=== PATIENT | male | born 1995 | race American Indian/Alaskan Native ===

== ENCOUNTER 2016-08-14 11:35 | Emergency (ER) | payer SELFPAY ==
[2016-08-14] MEDS ORDERED: NACL 0.9% 1000 ML 1,000 ML IV ONE ×2 (11:41→13:21)
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
[2016-08-14 12:34] LABS: Basophils % (Auto) 0.3 % (0.0-1.8); Eosinophils % (Auto) 1.4 % (0.0-4.3); Hematocrit 40.3 % (35.5-45.6); Hemoglobin 13.4 gm/dl (11.8-15.2); Mean Corpuscular HGB Conc 33 % (32-34); Mean Corpuscular Hemoglobin 29 pg (28-32); Mean Corpuscular Volume 88 fl (84-94); Platelet Count 328 K/mm3 (140-440); Red Blood Count 4.56 M/mm3 (3.65-5.03); Red Cell Distribution Width 13.6 % (13.2-15.2); White Blood Count 7.3 K/mm3 (4.5-11.0)
[2016-08-14 12:56] LABS: Alanine Aminotransferase 38 units/L (7-56); Albumin 4.4 g/dL (3.9-5); Albumin/Globulin Ratio 1.4 %; Alkaline Phosphatase 98 units/L (35-129); Anion Gap 17 mmol/L; Bilirubin,Total 0.2 mg/dL (0.1-1.2); Blood Urea Nitrogen 8 mg/dL (9-20); Calcium 9.1 mg/dL (8.4-10.2); Carbon Dioxide 25 mmol/L (22-30); Chloride 101.3 mmol/L (98-107); Glucose 110 mg/dL (75-100); Potassium 3.4 mmol/L (3.6-5.0); Sodium 140 mmol/L (137-145); Total Protein 7.5 g/dL (6.3-8.2)
[2016-08-14 12:57] LABS: Creatine Kinase 231 units/L (55-170)
--- NOTE | 2016-08-14 23:59 | Admit Criteria Form ---
Admission Criteria Documentation: DRUG INGESTION OR OVERDOSE Clinical Indications for Admission to Inpatient Care ( Place 'X' for any and all applicable criteria): Admission is indicated for severe toxicity as indicated by ANY ONE of the following(1)(2)(3)(4)(5)(6): [ X]I. Inpatient admission required rather than observation care (Also use Drug Ingestion or Overdose: Observation Care guideline as appropriate) because of ANY ONE of the following: [ ]a) Altered mental status that is severe or persistent [ ]b) Clinical finding (eg, metabolic acidosis, hypoglycemia, bradycardia) that is severe or persistent [ ]c) Toxic drug level that is persistent [ ]d) Psychiatric risk status not acceptable for outpatient management [ ]e) Continuous intravenous infusion of anticoagulation, platelet inhibitor, vasoactive, or antiarrhythmic medication (15)(16) [X ]f) Other condition, treatment or monitoring requiring inpatient admission [ ]II. Respiratory abnormalities [ ]III. Specific finding indicating severe and likely prolonged drug toxicity [ ]IV. Hemodynamic instability [ ]V. Dangerous arrhythmia [ ]. Hypertension requiring inpatient treatment Extended stay beyond goal length of stay may be needed for (4): [ ]a) Neurologic or respiratory compromise [ ]b) Hemodynamic instability [ ]c) Persistent toxic drug levels (25) [ ]d) Severe drug toxicities or complications [ ]e) Ongoing antidote treatment (eg, acetaminophen overdose)(5) [ ]f) Older patients(65 years or older) The original [employer] content created by [employer] has been revised. The portions of the content which have been revised are identified through the use of italic text or in bold, and [email or web address] has neither reviewed nor approved the modified material. All other unmodified content is copyright [facility] [employer]. Please see references footnoted in the original [employer] [facility] [employer] English edition 2016 Admission Criteria Met: Yes
[2016-08-15] MEDS ORDERED: LaMICtal PO SCH ×8 (12:00→22:00)
--- NOTE | 2016-08-15 13:10 | Event Note ---
Date: 08/15/16 I am asked by the nurse to evaluate the patient for possible convulsions/seizure -like activity. I have evaluated the patient in the past. 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 He has not taken his Lamictal since being here. His medications have been reconciled by me. Laboratory studies are reviewed and appreciated. Lactic acid 2.5 nonspecific, typically clinically did not get concerned with a lactic acid of less than 4.0. May be related to prolonged tourniquet time. No fever, no cough, no urinary symptoms, highly doubt serious bacterial infection at this time. We will reinitiate his Lamictal. Vital signs are reviewed. Patient is still awaiting psychiatric placement. Walks with a steady gait, has a GCS of 15, NIH score of 0. Vital Signs 08/14/16 08/14/16 08/14/16 11:49 11:50 11:54 Temperature Pulse Rate 126 H 127 H Respiratory 17 16 18 Rate Blood Pressure Blood Pressure [Left] O2 Sat by Pulse 100 100 100 Oximetry 08/14/16 08/14/16 08/14/16 12:00 12:15 12:30 Temperature Pulse Rate 144 H 120 H 108 H Respiratory 22 17 15 Rate Blood Pressure 153/88 159/73 149/71 Blood Pressure [Left] O2 Sat by Pulse 99 100 99 Oximetry 08/14/16 08/14/16 08/14/16 12:32 12:45 13:00 Temperature Pulse Rate 106 H 104 H 108 H Respiratory 16 14 22 Rate Blood Pressure 149/71 150/78 168/103 Blood Pressure [Left] O2 Sat by Pulse 99 99 99 Oximetry 08/14/16 08/14/16 08/14/16 13:16 13:30 13:40 Temperature Pulse Rate 98 H 102 H 92 H Respiratory 17 19 16 Rate Blood Pressure 128/68 120/48 120/48 Blood Pressure [Left] O2 Sat by Pulse 99 100 97 Oximetry 08/14/16 08/14/16 08/14/16 13:46 14:00 14:16 Temperature Pulse Rate 92 H 90 88 Respiratory 16 14 13 Rate Blood Pressure 120/43 111/42 134/42 Blood Pressure [Left] O2 Sat by Pulse 97 98 98 Oximetry 08/14/16 08/14/16 08/14/16 14:30 14:36 14:46 Temperature Pulse Rate 99 H 92 H 97 H Respiratory 21 17 19 Rate Blood Pressure 156/71 156/71 120/62 Blood Pressure [Left] O2 Sat by Pulse 98 99 100 Oximetry 08/14/16 08/14/16 08/14/16 15:00 15:15 15:30 Temperature Pulse Rate 90 86 96 H Respiratory 14 13 17 Rate Blood Pressure 102/51 91/45 152/83 Blood Pressure [Left] O2 Sat by Pulse 97 96 99 Oximetry 08/14/16 08/14/16 08/14/16 15:45 16:00 16:16 Temperature Pulse Rate 94 H 88 99 H Respiratory 18 14 18 Rate Blood Pressure 140/77 132/70 153/87 Blood Pressure [Left] O2 Sat by Pulse 99 99 98 Oximetry 08/14/16 08/14/16 08/14/16 16:30 16:45 17:00 Temperature Pulse Rate 92 H 90 84 Respiratory 16 14 14 Rate Blood Pressure 148/77 150/60 133/58 Blood Pressure [Left] O2 Sat by Pulse 98 97 98 Oximetry 08/14/16 08/14/16 08/14/16 17:15 17:30 17:45 Temperature Pulse Rate 95 H 104 H 102 H Respiratory 14 16 21 Rate Blood Pressure 134/66 142/70 144/118 Blood Pressure [Left] O2 Sat by Pulse 99 99 99 Oximetry 08/14/16 08/14/16 08/14/16 18:00 18:16 19:00 Temperature 97.0 F L Pulse Rate 115 H 115 H 94 H Respiratory 22 15 20 Rate Blood Pressure 144/118 175/106 Blood Pressure 145/82 [Left] O2 Sat by Pulse 98 97 97 Oximetry 08/15/16 08/15/16 08:52 12:39 Temperature 98.2 F Pulse Rate 97 H 101 H Respiratory 16 14 Rate Blood Pressure Blood Pressure 138/88 133/81 [Left] O2 Sat by Pulse 97 99 Oximetry Lab Results 08/14/16 08/14/16 08/14/16 Range/Units 11:41 11:41 11:42 WBC 7.3 (4.5-11.0) K/mm3 RBC 4.56 (3.65-5.03) M/mm3 Hgb 13.4 (11.8-15.2) gm/dl Hct 40.3 (35.5-45.6) % MCV 88 (84-94) fl MCH 29 (28-32) pg MCHC 33 (32-34) % RDW 13.6 (13.2-15.2) % Plt Count 328 (140-440) K/mm3 Lymph % (Auto) 17.7 (13.4-35.0) % [place] % (Auto) 7.0 (0.0-7.3) % Eos % (Auto) 1.4 (0.0-4.3) % Baso % (Auto) 0.3 (0.0-1.8) % Lymph # 1.3 (1.2-5.4) K/mm3 [place] # 0.5 (0.0-0.8) K/mm3 Eos # 0.1 (0.0-0.4) K/mm3 Baso # 0.0 (0.0-0.1) K/mm3 Seg Neutrophils % 73.6 H (40.0-70.0) % Seg Neutrophils # 5.4 (1.8-7.7) K/mm3 Sodium 140 (137-145) mmol/L Potassium 3.4 L (3.6-5.0) mmol/L Chloride 101.3 (98-107) mmol/L Carbon Dioxide 25 (22-30) mmol/L Anion Gap 17 mmol/L BUN 8 L (9-20) mg/dL Creatinine 1.0 (0.8-1.5) mg/dL Estimated GFR > 60 ml/min BUN/Creatinine Ratio 8.00 % Glucose 110 H (75-100) mg/dL Lactic Acid (0.7-2.0) mmol/L Calcium 9.1 (8.4-10.2) mg/dL Total Bilirubin 0.2 (0.1-1.2) mg/dL AST 20 (5-40) units/L ALT 38 (7-56) units/L Alkaline Phosphatase 98 (35-129) units/L Total Creatine Kinase 231 H (55-170) units/L Troponin T < 0.010 (0.00-0.029) ng/mL Total Protein 7.5 (6.3-8.2) g/dL Albumin 4.4 (3.9-5) g/dL Albumin/Globulin Ratio 1.4 % Salicylates (2.8-20.0) mg/dL Acetaminophen (10.0-30.0) ug/mL Plasma/Serum Alcohol (0-0.07) gm% 08/14/16 08/14/16 08/14/16 Range/Units 11:42 11:42 11:42 WBC (4.5-11.0) K/mm3 RBC (3.65-5.03) M/mm3 Hgb (11.8-15.2) gm/dl Hct (35.5-45.6) % MCV (84-94) fl MCH (28-32) pg MCHC (32-34) % RDW (13.2-15.2) % Plt Count (140-440) K/mm3 Lymph % (Auto) (13.4-35.0) % [place] % (Auto) (0.0-7.3) % Eos % (Auto) (0.0-4.3) % Baso % (Auto) (0.0-1.8) % Lymph # (1.2-5.4) K/mm3 [place] # (0.0-0.8) K/mm3 Eos # (0.0-0.4) K/mm3 Baso # (0.0-0.1) K/mm3 Seg Neutrophils % (40.0-70.0) % Seg Neutrophils # (1.8-7.7) K/mm3 Sodium (137-145) mmol/L Potassium (3.6-5.0) mmol/L Chloride (98-107) mmol/L Carbon Dioxide (22-30) mmol/L Anion Gap mmol/L BUN (9-20) mg/dL Creatinine (0.8-1.5) mg/dL Estimated GFR ml/min BUN/Creatinine Ratio % Glucose (75-100) mg/dL Lactic Acid (0.7-2.0) mmol/L Calcium (8.4-10.2) mg/dL Total Bilirubin (0.1-1.2) mg/dL AST (5-40) units/L ALT (7-56) units/L Alkaline Phosphatase (35-129) units/L Total Creatine Kinase (55-170) units/L Troponin T (0.00-0.029) ng/mL Total Protein (6.3-8.2) g/dL Albumin (3.9-5) g/dL Albumin/Globulin Ratio % Salicylates < 0.3 L (2.8-20.0) mg/dL Acetaminophen < 15.0 (10.0-30.0) ug/mL Plasma/Serum Alcohol < 0.01 (0-0.07) gm% 08/14/16 Range/Units 11:50 WBC (4.5-11.0) K/mm3 RBC (3.65-5.03) M/mm3 Hgb (11.8-15.2) gm/dl Hct (35.5-45.6) % MCV (84-94) fl MCH (28-32) pg MCHC (32-34) % RDW (13.2-15.2) % Plt Count (140-440) K/mm3 Lymph % (Auto) (13.4-35.0) % [place] % (Auto) (0.0-7.3) % Eos % (Auto) (0.0-4.3) % Baso % (Auto) (0.0-1.8) % Lymph # (1.2-5.4) K/mm3 [place] # (0.0-0.8) K/mm3 Eos # (0.0-0.4) K/mm3 Baso # (0.0-0.1) K/mm3 Seg Neutrophils % (40.0-70.0) % Seg Neutrophils # (1.8-7.7) K/mm3 Sodium (137-145) mmol/L Potassium (3.6-5.0) mmol/L Chloride (98-107) mmol/L Carbon Dioxide (22-30) mmol/L Anion Gap mmol/L BUN (9-20) mg/dL Creatinine (0.8-1.5) mg/dL Estimated GFR ml/min BUN/Creatinine Ratio % Glucose (75-100) mg/dL Lactic Acid 2.5 H* (0.7-2.0) mmol/L Calcium (8.4-10.2) mg/dL Total Bilirubin (0.1-1.2) mg/dL AST (5-40) units/L ALT (7-56) units/L Alkaline Phosphatase (35-129) units/L Total Creatine Kinase (55-170) units/L Troponin T (0.00-0.029) ng/mL Total Protein (6.3-8.2) g/dL Albumin (3.9-5) g/dL Albumin/Globulin Ratio % Salicylates (2.8-20.0) mg/dL Acetaminophen (10.0-30.0) ug/mL Plasma/Serum Alcohol (0-0.07) gm%
[2016-08-15] MEDS ORDERED: LaMICtal PO ONE (14:12)
[2016-08-15] MEDS ORDERED: LAMOTRIGINE 250 MG PO SCH (22:00)
[2016-08-15] MEDS ORDERED: MINIPRESS PO SCH ×2 (22:00)
[2016-08-15] MEDS: LaMICtal PO SCH (23:07)
[2016-08-15] MEDS ORDERED: ULTRAM PO ONE (23:09)
[2016-08-16] MEDS ORDERED: EFFEXOR XR PO SCH (10:00)
[2016-08-16] MEDS ORDERED: NON-FORMULARY (Lamotrigine [Lamictal] 200 MG) PO SCH (10:00)
[2016-08-16] MEDS ORDERED: VENLAFAXINE HCL 150 MG PO SCH (10:00)
[2016-08-16] MEDS: LaMICtal PO SCH (10:17)
[2016-08-16 11:31] VITALS: BP 138/86
== END 2016-08-16 13:24 ==
LOC: EEVIPCON 11:35 → ED 11:35
DX: T50.902A Poisoning by unspecified drugs, medicaments and biological substances, intentional self-harm, initial encounter (principal); T14.91 Suicide attempt; I10 Essential (primary) hypertension; F41.9 Anxiety disorder, unspecified; F31.9 Bipolar disorder, unspecified; J45.909 Unspecified asthma, uncomplicated
CPT/HCPCS: 36415; 80053; 82140; 82550; 84484; 85025; 93005; 93010; 99285; G0480; J7030; 80320

== ENCOUNTER 2017-06-16 23:14 | Emergency (ER) | payer OTHER ==
[2017-06-17] MEDS ORDERED: DILAUDID IM ONE (01:00)
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
[2017-06-17] MEDS ORDERED: DILAUDID SUB-Q ONE (02:03)
[2017-06-17 02:42] VITALS: BP 124/79
[2017-06-17 03:07] LABS: Basophils % (Auto) 0.1 % (0.0-1.8); Eosinophils % (Auto) 1.3 % (0.0-4.3); Hematocrit 39.9 % (35.5-45.6); Hemoglobin 13.7 gm/dl (11.8-15.2); Mean Corpuscular HGB Conc 34 % (32-34); Mean Corpuscular Hemoglobin 30 pg (28-32); Mean Corpuscular Volume 87 fl (84-94); Platelet Count 372 K/mm3 (140-440); Red Blood Count 4.61 M/mm3 (3.65-5.03); Red Cell Distribution Width 13.4 % (13.2-15.2); White Blood Count 10.8 K/mm3 (4.5-11.0)
--- NOTE | 2017-06-17 03:13 | Cat Scan Report ---
FINAL REPORT PROCEDURE: CT HEAD/BRAIN WO CON TECHNIQUE: Computerized tomography of the head was performed without contrast material. HISTORY: TRAUMA COMPARISON: No prior studies are available for comparison. FINDINGS: Skull and scalp: Normal. Paranasal sinuses: Normal. Ventricles and subarachnoid spaces: Normal. Cerebrum: No evidence of hemorrhage, acute infarction or mass . Cerebellum and brainstem: No evidence of hemorrhage, acute infarction or mass. Vasculature: Normal. Comments: None. IMPRESSION: Normal Examination
[2017-06-17 03:27] LABS: Alanine Aminotransferase 42 units/L (7-56); Albumin/Globulin Ratio 1.5 %; Alkaline Phosphatase 76 units/L (35-129); Anion Gap 18 mmol/L; BUN/Creatinine Ratio 8; Blood Urea Nitrogen 5 mg/dL (9-20); Carbon Dioxide 24 mmol/L (22-30); Chloride 100.2 mmol/L (98-107); Glucose 91 mg/dL (75-100); Potassium 3.7 mmol/L (3.6-5.0); Sodium 138 mmol/L (137-145); Total Protein 6.7 g/dL (6.3-8.2)
--- NOTE | 2017-06-17 03:35 | Cat Scan Report ---
FINAL REPORT PROCEDURE: CT THORACIC SPINE WO CON TECHNIQUE: Computerized axial tomography of the thoracic spine was performed from C7 - L1 without contrast material. HISTORY: traUMA COMPARISON: No prior studies are available for comparison. FINDINGS: There are no fractures or malalignments. Intervertebral disc spaces are normal. Facet joints are intact. There is no bony spinal or foraminal stenosis. Soft tissues are unremarkable. IMPRESSION: There are no fractures or malalignments.
--- NOTE | 2017-06-17 03:38 | Cat Scan Report ---
FINAL REPORT PROCEDURE: CT ABDOMEN PELVIS W CON TECHNIQUE: Computerized axial tomography of the abdomen and pelvis was performed after the IV injection of iodinated nonionic contrast. HISTORY: traUMA COMPARISON: No prior studies are available for comparison. FINDINGS: Visualized lower thorax: No significant abnormality. Liver: Normal size and attenuation. There is no liver laceration. Spleen: Normal size and attenuation. There is no spleen laceration. Gallbladder and biliary system: Normal. Pancreas: Normal. Adrenals: Normal. Kidneys: Normal. GI tract: There has been an appendectomy. There is no acute bowel abnormality.. Lymph nodes and mesentery: Normal. Vasculature: Normal. Bladder: Normal. Reproductive organs: Normal. Peritoneum: There is no hemoperitoneum, ascites, free air, abscess or adenopathy.. Musculoskeletal structures: No significant abnormality. Other: None. IMPRESSION: There is no acute traumatic injury of the abdomen or pelvis.
== END 2017-06-17 04:38 | disposition home or self-care (01) ==
LOC: ED 23:14
DX: M54.9 Dorsalgia, unspecified (principal); M79.651 Pain in right thigh; M79.652 Pain in left thigh; V89.2XXA Person injured in unspecified motor-vehicle accident, traffic, initial encounter; Y93.89 Activity, other specified; Y99.8 Other external cause status; Y92.481 Parking lot as the place of occurrence of the external cause
CPT/HCPCS: 36415; 70450; 72128; 74177; 80053; 85025; 96372; 99284; J1170; Q9967

== ENCOUNTER 2019-06-14 15:00 | Emergency (ER) | payer OTHER ==
[2019-06-14] MEDS ORDERED: levETIRAcetam 1000 MG/NS 0.75% 1,000 MG/100 ML BAG IV ONE (15:26)
[2019-06-14] MEDS ORDERED: lamoTRIgine 25 MG TAB PO ONE (15:26)
[2019-06-14 16:03] LABS: Mean Corpuscular HGB Conc 34 % (32-34); Mean Corpuscular Volume 91 fl (84-94); Platelet Count 313 K/mm3 (140-440); Red Blood Count 4.62 M/mm3 (3.65-5.03); Red Cell Distribution Width 12.7 % (13.2-15.2)
[2019-06-14 17:04] LABS: BUN/Creatinine Ratio 9; Blood Urea Nitrogen 8 mg/dL (9-20); Calcium 9.4 mg/dL (8.4-10.2); Hemolysis Index 47
--- NOTE | 2019-06-14 17:18 | Emergency Department Report ---
ED Seizure HPI - General Chief Complaint: Seizure Stated Complaint: CONVULSIONS Time Seen by Provider: 06/14/19 15:22 Source: patient, EMS Mode of arrival: Ambulatory Limitations: No Limitations - History of Present Illness Initial Comments: Patient is a 23-year-old Afro-[place] Citizen male with a past medical history of seizure disorder who states that he had a seizure today as well as 2 weeks ago. Patient states that he is compliant with his Lamictal is not missed any doses. He denies fevers chills neck stiffness, cold congestion or nausea vomiting. - Related Data Home Medications Medication Instructions Recorded Confirmed Last Taken Prazosin [Minipress] 2 mg PO QHS 01/01/16 08/15/16 Unknown QUEtiapine [SEROquel] 125 mg PO QPM 01/01/16 08/14/16 Unknown Venlafaxine HCl [Effexor Xr] 150 mg PO QAM 08/15/16 08/15/16 Unknown lamoTRIgine [LaMICtal] 200 mg PO QAM 08/15/16 08/15/16 Unknown lamoTRIgine [LaMICtal] 250 mg PO QHS 08/15/16 08/15/16 Unknown Previous Rx's Medication Instructions Recorded Last Taken Type levETIRAcetam [Keppra TAB] 500 mg PO BID #60 tablet 06/14/19 Unknown Rx Allergies Allergy/AdvReac Type Severity Reaction Status Date / Time naproxen Allergy Hives Verified 08/14/16 19:49 ED Review of Systems ROS: Stated complaint: CONVULSIONS Other details as noted in HPI Comment: All other systems reviewed and negative ED Past Medical Hx - Past Medical History Previous Medical History?: Yes Hx Hypertension: Yes Hx Seizures: Yes Hx Psychiatric Treatment: Yes (depression panic disorder/ANXIETY/ BIPOLAR) Hx Asthma: Yes Hx HIV: No - Surgical History Past Surgical History?: No - Social History Smoking Status: Never Smoker Substance Use Type: Alcohol - Medications Home Medications: Home Medications Medication Instructions Recorded Confirmed Last Taken Type Prazosin [Minipress] 2 mg PO QHS 01/01/16 08/15/16 Unknown History QUEtiapine [SEROquel] 125 mg PO QPM 01/01/16 08/14/16 Unknown History Venlafaxine HCl [Effexor Xr] 150 mg PO QAM 08/15/16 08/15/16 Unknown History lamoTRIgine [LaMICtal] 200 mg PO QAM 08/15/16 08/15/16 Unknown History lamoTRIgine [LaMICtal] 250 mg PO QHS 08/15/16 08/15/16 Unknown History levETIRAcetam [Keppra TAB] 500 mg PO BID #60 tablet 06/14/19 Unknown Rx ED Physical Exam - General Limitations: No Limitations General appearance: alert, in no apparent distress - Head Head exam: Present: atraumatic, normocephalic - Eye Eye exam: Present: normal appearance, PERRL, EOMI - ENT ENT exam: Present: mucous membranes moist - Neck Neck exam: Present: normal inspection - Respiratory Respiratory exam: Present: normal lung sounds bilaterally. Absent: respiratory distress, wheezes, rales, rhonchi - Cardiovascular Cardiovascular Exam: Present: regular rate, normal rhythm. Absent: systolic murmur, diastolic murmur, rubs, gallop - GI/Abdominal GI/Abdominal exam: Present: soft, normal bowel sounds - Rectal Rectal exam: Present: deferred - Extremities Exam Extremities exam: Present: normal inspection - Back Exam Back exam: Present: normal inspection - Neurological Exam Neurological exam: Present: alert, oriented X3 - Psychiatric Psychiatric exam: Present: normal affect, normal mood - Skin Skin exam: Present: warm, dry, intact, normal color. Absent: rash ED Course Vital Signs 06/14/19 15:12 Temperature 99.0 F Pulse Rate 95 H Respiratory 16 Rate Blood Pressure 137/84 O2 Sat by Pulse 98 Oximetry ED Medical Decision Making - Lab Data Result diagrams: 06/14/19 15:35 06/14/19 15:35 - Medical Decision Making Patient states he is compliant with his Lamictal and is having breakthrough seizures. Patient was loaded with Keppra will have this medication added as a outpatient medication. Patient has [employer] insurance and is to follow-up with their neurologist. Critical care attestation.: If time is entered above; I have spent that time in minutes in the direct care of this critically ill patient, excluding procedure time. ED Disposition Clinical Impression: Seizure Disposition: DC-01 TO HOME OR SELFCARE Is pt being admited?: No Does the pt Need Aspirin: No Condition: Stable Instructions: Epilepsy (ED) Prescriptions: levETIRAcetam [Keppra TAB] 500 mg PO BID #60 tablet Referrals: JOHNATHAN TURNER [Other] - 3-5 Days (Please follow up with Johnathan so that they can scheduled to see a neurologist) Time of Disposition: 17:18
[2019-06-14 17:47] VITALS: BP 137/87
== END 2019-06-14 17:50 | disposition home or self-care (01) ==
LOC: ED 15:00
DX: R56.9 Unspecified convulsions (principal); I10 Essential (primary) hypertension; F32.9 Major depressive disorder, single episode, unspecified; J45.909 Unspecified asthma, uncomplicated; Z79.899 Other long term (current) drug therapy; Z88.8 Allergy status to other drugs, medicaments and biological substances
CPT/HCPCS: 36415; 80048; 82962; 85027; 96365; 99284; J1953

== ENCOUNTER 2020-05-04 16:55 | Emergency (ER) | payer OTHER ==
--- NOTE | 2020-05-04 17:05 | Event Note ---
ED Screening Note Date of service: 05/04/20 Time: 17:03 ED Screening Note: Pt here for medical clearance for alcohol detox and seizure went to [place] and was referred to ED +SI seizure 15 minutes [employer]IOR [employer]-currently taking dilantin This initial assessment/diagnostic orders/clinical plan/treatment(s) is/are subject to change based on patients health status, clinical progression and re- assessment by fellow clinical providers in the ED. Further treatment and workup at subsequent clinical providers discretion. Patient/guardian urged not to elope from the ED as their condition may be serious if not clinically assessed and managed. Initial orders include: labs ekg
[2020-05-04 17:20] LABS: Basophils % (Auto) 0.4 % (0.0-1.8); Eosinophils # (Auto) 0.1 K/mm3 (0.0-0.4); Eosinophils % (Auto) 0.7 % (0.0-4.3); Hematocrit 43.4 % (35.5-45.6); Hemoglobin 14.5 gm/dl (11.8-15.2); Lymphocytes # (Auto) 2.1 K/mm3 (1.2-5.4); Lymphocytes % (Auto) 18.4 % (13.4-35.0); Mean Corpuscular HGB Conc 34 % (32-34); Mean Corpuscular Volume 92 fl (84-94); Monocytes # (Auto) 0.7 K/mm3 (0.0-0.8); Monocytes % (Auto) 6.4 % (0.0-7.3); Platelet Count 366 K/mm3 (140-440); Red Blood Count 4.72 M/mm3 (3.65-5.03); Red Cell Distribution Width 12.9 % (13.2-15.2)
[2020-05-04 17:45] LABS: Alanine Aminotransferase 30 units/L (7-56); Albumin 4.6 g/dL (3.9-5); BUN/Creatinine Ratio 12; Blood Urea Nitrogen 12 mg/dL (9-20); Calcium 9.5 mg/dL (8.4-10.2); Hemolysis Index 12
[2020-05-04] MEDS ORDERED: lamoTRIgine 100 MG TAB PO ONE (23:28)
[2020-05-04] MEDS ORDERED: ONDANSETRON 4 MG ODT TAB PO ONE (23:29)
[2020-05-04] MEDS ORDERED: MULTIVITAMINS ,THERAPEUTIC TAB PO ONE (23:30)
[2020-05-04] MEDS ORDERED: ACETAMINOPHEN 325 MG TAB PO ONE (23:30)
--- NOTE | 2020-05-04 23:34 | Emergency Department Report ---
HPI - General Chief Complaint: Seizure Time Seen by Provider: 05/04/20 16:59 - HPI HPI: This is a 24-year-old male presents to the emergency department, brought in by his mother, for a medical clearance for psychiatric admission, as well as a seizure. The patient admits to daily alcohol use but really was abusing alcohol over the weekend. The patient does have a seizure disorder and has been noncompliant with his Lamictal 100 mg 3 times daily, over the past 3 to 4 days. Patient has a history of depression, anxiety, bipolar disorder and says that he has been having suicidal ideations over the past 1 to 2 weeks. He decided to go get psychiatric help and was brought over to [place], but the patient allegedly had a seizure in the lobby. For this reason he was brought to our emergency department. At the time of my examination the patient is awake, alert, oriented and has the complaints of nausea without vomiting and some body aches. He has a past medical history that includes asthma and hypertension. He denies any fever, vision change, slurred speech, numbness or paresthesias. The patient does not have any specific plan as to how he would harm himself. He denies any homicidal ideations or any hallucinations. ED Past Medical Hx - Past Medical History Previous Medical History?: Yes Hx Hypertension: Yes Hx Seizures: Yes Hx Psychiatric Treatment: Yes (depression panic disorder/ANXIETY/ BIPOLAR) Hx Asthma: Yes Hx HIV: No - Social History Smoking Status: Never Smoker Substance Use Type: Alcohol - Medications Home Medications: Home Medications Medication Instructions Recorded Confirmed Last Taken Type Prazosin [Minipress] 2 mg PO QHS 01/01/16 08/15/16 Unknown History QUEtiapine [SEROquel] 125 mg PO QPM 01/01/16 08/14/16 Unknown History Venlafaxine HCl [Effexor Xr] 150 mg PO QAM 08/15/16 08/15/16 Unknown History lamoTRIgine [LaMICtal] 200 mg PO QAM 08/15/16 08/15/16 Unknown History lamoTRIgine [LaMICtal] 250 mg PO QHS 08/15/16 08/15/16 Unknown History levETIRAcetam [Keppra TAB] 500 mg PO BID #60 tablet 06/14/19 Unknown Rx ED Review of Systems ROS: Stated complaint: SEIZURE Other details as noted in HPI Comment: All other systems reviewed and negative Constitutional: denies: chills, fever Eyes: denies: eye pain, vision change ENT: denies: ear pain, throat pain Respiratory: denies: cough, shortness of breath Cardiovascular: denies: chest pain, palpitations Gastrointestinal: nausea. denies: vomiting Genitourinary: denies: dysuria, discharge Musculoskeletal: myalgia. denies: joint swelling Skin: denies: rash, lesions Neurological: denies: weakness, numbness Physical Exam - Physical Exam Vital Signs: Vital Signs 05/04/20 17:05 Temperature 98 F Pulse Rate 95 H Respiratory 18 Rate Blood Pressure 149/93 [Right] O2 Sat by Pulse 100 Oximetry Physical Exam: GENERAL: The patient is well-developed well-nourished. HENT: Normocephalic. Atraumatic. Patient has moist mucous membranes. EYES: Extraocular motions are intact. Pupils equal reactive to light bilaterally. NECK: Supple. Trachea is midline. CHEST/LUNGS: Clear to auscultation. There is no respiratory distress noted. HEART/CARDIOVASCULAR: Regular. There is no tachycardia. There is no murmur. ABDOMEN: Abdomen is soft, nontender. Patient has normal bowel sounds. SKIN: Skin is warm and dry. NEURO: The patient is awake, alert, and oriented. The patient is cooperative. The patient has no focal neurologic deficits. Normal speech. Cranial nerves II through XII grossly intact. MUSCULOSKELETAL: There is no tenderness or deformity. There is no limitation range of motion. ED Course Vital Signs 05/04/20 17:05 Temperature 98 F Pulse Rate 95 H Respiratory 18 Rate Blood Pressure 149/93 [Right] O2 Sat by Pulse 100 Oximetry ED Medical Decision Making - Lab Data Result diagrams: 05/04/20 17:09 05/04/20 17:09 - EKG Data -: EKG Interpreted by Me EKG shows normal: sinus rhythm, axis, intervals, QRS complexes, ST-T waves Rate: normal - EKG Data When compared to previous EKG there are: previous EKG unavailable Interpretation: normal EKG - Medical Decision Making This patient has been dealing with suicidal ideations over the past 1 to 2 weeks. He also admits to some recent alcohol abuse. The patient went over to [facility] with the hopes of being admitted to their facility for his depression and suicidal ideation. However while he was there he allegedly had a seizure. He was then brought to the emergency department by his mother for further evaluation. Since being in the emergency department the patient has been awake, alert, oriented and there has been no further seizure- like activity. On examination he does not have any focal, motor or sensory deficits and his cranial nerves are intact. He was given a dose of his Lamictal. His vital signs have been reassuring throughout his ED course. Labs have been mostly unremarkable including CBC, metabolic panel, blood alcohol level, urine drug screen. Patient has been made a 1013 secondary to his suicidal ideations and will be seen by the psychiatric team in the morning for further disposition. If the patient requires inpatient stabilization, he is medically cleared to do so. Critical Care Time: No Critical care attestation.: If time is entered above; I have spent that time in minutes in the direct care of this critically ill patient, excluding procedure time. ED Disposition Clinical Impression: Seizure disorder, Suicidal ideations Depression Qualifiers: Depression Type: unspecified Qualified Code(s): F32.9 - Major depressive disorder, single episode, unspecified Disposition: DC/TX-65 PSY HOSP/PSY UNIT Is pt being admited?: No Condition: Stable Time of Disposition: 03:57
[2020-05-05 01:52] LABS: Bilirubin,Urine NEG (Negative); Blood,Urine NEG (Negative); Color,Urine Yellow (Yellow); Mucus,Urine 3+ /HPF
[2020-05-05 01:54] LABS: Amphetamine Screen,Urine PRESUMPTIVE NEGATIVE; Benzodiazepines Screen,Urine PRESUMPTIVE NEGATIVE; Cannabinoid Screen,Urine PRESUMPTIVE NEGATIVE; Cocaine Screen,Urine PRESUMPTIVE NEGATIVE; Methadone Screen,Urine PRESUMPTIVE NEGATIVE; Opiate Screen,Urine PRESUMPTIVE NEGATIVE
[2020-05-05 07:51] VITALS: BP 115/79
== END 2020-05-05 14:15 ==
LOC: ED 16:55
DX: G40.909 Epilepsy, unspecified, not intractable, without status epilepticus (principal); F32.9 Major depressive disorder, single episode, unspecified; R45.851 Suicidal ideations; I10 Essential (primary) hypertension; F41.9 Anxiety disorder, unspecified; J45.909 Unspecified asthma, uncomplicated; Z88.8 Allergy status to other drugs, medicaments and biological substances; Z79.899 Other long term (current) drug therapy
CPT/HCPCS: 36415; 80053; 80307; 80320; 81001; 83735; 85025; 93005; G0480; Q0162

== ENCOUNTER 2020-08-30 12:48 | Emergency (ER) | payer OTHER ==
--- NOTE | 2020-08-30 13:13 | Emergency Department Report ---
ED General Adult HPI - General Chief complaint: Seizure Stated complaint: SEIZURE PUI?: No Time Seen by Provider: 08/30/20 12:54 Source: EMS Mode of arrival: Stretcher Limitations: Other - History of Present Illness Initial comments: This is a 25-year-old male who has been previously admitted here for questionable overdose. 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 I do not know if he has seizures as well. Apparently, I am told by the nurse that the paramedics reported that he had a generalized seizure at [place]. He was given 2 mg of Ativan IV. He is now sedated and unable to give a history. Glucose prior to arrival I am told is normal. No further information has available at this time. The patient is altered and unable to provide a history. Patient is noted to have a resting tachycardia of about 105-110. -: unknown - Related Data Home Medications Medication Instructions Recorded Confirmed Last Taken lamoTRIgine [LaMICtal] 100 mg PO QAM 08/15/16 05/05/20 Unknown lamoTRIgine [LaMICtal] 300 mg PO QHS 08/15/16 05/05/20 Unknown Emtricitabine/Tenofovir (Tdf) 1 each PO DAILY 05/05/20 05/05/20 Unknown [Truvada 167 mg-250 mg Tablet] Lisinopril [Zestril] 5 mg PO DAILY 05/05/20 05/05/20 Unknown Ondansetron HCl [Zofran] 4 mg PO PRN PRN 05/05/20 05/05/20 Unknown Allergies Allergy/AdvReac Type Severity Reaction Status Date / Time naproxen Allergy Hives Verified 08/14/16 19:49 ED Review of Systems ROS: Stated complaint: SEIZURE Other details as noted in HPI Comment: Unobtainable due to pts medical conditions ED Past Medical Hx - Past Medical History Hx Hypertension: Yes Hx Seizures: Yes Hx Psychiatric Treatment: Yes (depression panic disorder/ANXIETY/ BIPOLAR) Hx Asthma: Yes Hx HIV: No - Family History Family history: other (1 no) - Social History Smoking Status: Smoker, Current Status Unknown Substance Use Type: Other (Unknown) - Medications Home Medications: Home Medications Medication Instructions Recorded Confirmed Last Taken Type lamoTRIgine [LaMICtal] 100 mg PO QAM 08/15/16 05/05/20 Unknown History lamoTRIgine [LaMICtal] 300 mg PO QHS 08/15/16 05/05/20 Unknown History Emtricitabine/Tenofovir (Tdf) 1 each PO DAILY 05/05/20 05/05/20 Unknown History [Truvada 167 mg-250 mg Tablet] Lisinopril [Zestril] 5 mg PO DAILY 05/05/20 05/05/20 Unknown History Ondansetron HCl [Zofran] 4 mg PO PRN PRN 05/05/20 05/05/20 Unknown History ED Physical Exam - General Limitations: Altered Mental Status, Physical Limitation General appearance: alert, in no apparent distress, obese - Head Head exam: Present: atraumatic, normocephalic - Eye Eye exam: Present: PERRL. Absent: scleral icterus Pupils: Present: mydriatic - ENT ENT exam: Present: mucous membranes moist - Neck Neck exam: Present: normal inspection. Absent: tenderness, meningismus - Respiratory Respiratory exam: Present: normal lung sounds bilaterally. Absent: respiratory distress - Cardiovascular Cardiovascular Exam: Present: regular rate, normal rhythm. Absent: systolic murmur, diastolic murmur, rubs, gallop - GI/Abdominal GI/Abdominal exam: Present: soft, normal bowel sounds. Absent: distended, tenderness, guarding, rebound - Rectal Rectal exam: Present: deferred - Extremities Exam Extremities exam: Present: normal inspection - Back Exam Back exam: Present: normal inspection - Neurological Exam Neurological exam: Present: other (Little response to external stimuli) - Psychiatric Psychiatric exam: Present: other (Altered) - Skin Skin exam: Present: warm, dry, intact, normal color. Absent: rash ED Course Vital Signs 08/30/20 08/30/20 08/30/20 12:53 12:56 13:00 Temperature 98.9 F Pulse Rate 105 H 104 H Respiratory 14 14 14 Rate Blood Pressure 148/93 Blood Pressure 172/89 [Right] O2 Sat by Pulse 98 98 98 Oximetry 08/30/20 08/30/20 14:06 15:07 Temperature Pulse Rate 99 H 89 Respiratory 14 16 Rate Blood Pressure Blood Pressure 134/82 134/85 [Right] O2 Sat by Pulse 98 99 Oximetry - Reevaluation(s) Reevaluation #1: IV fluids recheck sugar. CT the head observe and work-up. 08/30/20 14:24 Reevaluation #2: The fact that the patient has a normal lactic acid level right after a prolonged generalized seizure, as well as, a normal CK probably argues more for pseudoseizures. On reexamination the patient is mental status has improved. He is able to tell me he is not hungry. We will observe him further. It is anticipated that he may be able to return to [place]. His imaging tests were negative. His labs were within acceptable limits. 08/30/20 14:50 Reevaluation #3: Patient with progressively improving mental status and no active complaints. He will be observed until appropriate for return to the psychiatric setting. ED Medical Decision Making - Lab Data Result diagrams: 08/30/20 13:04 08/30/20 13:04 Laboratory Results - last 24 hr 08/30/20 08/30/20 08/30/20 13:02 13:04 13:04 WBC RBC Hgb Hct MCV MCH MCHC RDW Plt Count Lymph % (Auto) [place] % (Auto) Eos % (Auto) Baso % (Auto) Lymph # (Auto) [place] # (Auto) Eos # (Auto) Baso # (Auto) Seg Neutrophils % Seg Neutrophils # PT INR APTT Sodium Potassium Chloride Carbon Dioxide Anion Gap BUN Creatinine Estimated GFR BUN/Creatinine Ratio Glucose POC Glucose 79 Lactic Acid Calcium Magnesium Total Bilirubin Direct Bilirubin Indirect Bilirubin AST ALT Alkaline Phosphatase Ammonia Total Creatine Kinase CK-MB (CK-2) CK-MB (CK-2) Rel Index Troponin T NT-Pro-B Natriuret Pep Total Protein Albumin Albumin/Globulin Ratio Salicylates < 0.3 L Acetaminophen 5.0 L Plasma/Serum Alcohol 08/30/20 08/30/20 08/30/20 13:04 13:04 13:04 WBC RBC Hgb Hct MCV MCH MCHC RDW Plt Count Lymph % (Auto) [place] % (Auto) Eos % (Auto) Baso % (Auto) Lymph # (Auto) [place] # (Auto) Eos # (Auto) Baso # (Auto) Seg Neutrophils % Seg Neutrophils # PT INR APTT Sodium 138 Potassium 4.1 Chloride 104.0 Carbon Dioxide 28 Anion Gap 10 BUN 9 Creatinine 1.0 Estimated GFR > 60 BUN/Creatinine Ratio 9 Glucose 101 H POC Glucose Lactic Acid 1.40 Calcium 9.2 Magnesium Total Bilirubin Direct Bilirubin Indirect Bilirubin AST ALT Alkaline Phosphatase Ammonia Total Creatine Kinase CK-MB (CK-2) CK-MB (CK-2) Rel Index Troponin T NT-Pro-B Natriuret Pep Total Protein Albumin Albumin/Globulin Ratio Salicylates Acetaminophen Plasma/Serum Alcohol < 0.01 08/30/20 08/30/20 08/30/20 13:04 13:04 13:11 WBC 8.8 RBC 4.49 Hgb 14.0 Hct 41.3 MCV 92 MCH 31 MCHC 34 RDW 12.3 L Plt Count 325 Lymph % (Auto) 17.4 [place] % (Auto) 6.4 Eos % (Auto) 0.8 Baso % (Auto) 0.8 Lymph # (Auto) 1.5 [place] # (Auto) 0.6 Eos # (Auto) 0.1 Baso # (Auto) 0.1 Seg Neutrophils % 74.6 H Seg Neutrophils # 6.5 PT 12.7 INR 0.97 APTT 26.1 Sodium Potassium Chloride Carbon Dioxide Anion Gap BUN Creatinine Estimated GFR BUN/Creatinine Ratio Glucose POC Glucose Lactic Acid Calcium Magnesium Total Bilirubin Direct Bilirubin Indirect Bilirubin AST ALT Alkaline Phosphatase Ammonia Total Creatine Kinase 152 CK-MB (CK-2) 1.1 CK-MB (CK-2) Rel Index 0.7 Troponin T NT-Pro-B Natriuret Pep Total Protein Albumin Albumin/Globulin Ratio Salicylates Acetaminophen Plasma/Serum Alcohol 08/30/20 08/30/20 13:11 13:11 WBC RBC Hgb Hct MCV MCH MCHC RDW Plt Count Lymph % (Auto) [place] % (Auto) Eos % (Auto) Baso % (Auto) Lymph # (Auto) [place] # (Auto) Eos # (Auto) Baso # (Auto) Seg Neutrophils % Seg Neutrophils # PT INR APTT Sodium Potassium Chloride Carbon Dioxide Anion Gap BUN Creatinine Estimated GFR BUN/Creatinine Ratio Glucose POC Glucose Lactic Acid Calcium Magnesium 2.10 Total Bilirubin 0.20 Direct Bilirubin < 0.2 Indirect Bilirubin 0.0 AST 20 ALT 46 Alkaline Phosphatase 73 Ammonia 24.0 L Total Creatine Kinase CK-MB (CK-2) CK-MB (CK-2) Rel Index Troponin T < 0.010 NT-Pro-B Natriuret Pep 52.64 Total Protein 6.9 Albumin 4.6 Albumin/Globulin Ratio 2.0 Salicylates Acetaminophen Plasma/Serum Alcohol - EKG Data -: EKG Interpreted by Pr EKG shows normal: sinus rhythm, axis, intervals, QRS complexes, ST-T waves Rate: tachycardia - EKG Data Interpretation: no acute changes - Radiology Data Radiology results: report reviewed (Chest x-ray no acute process, CT the head read by radiologist as negative), image reviewed Critical care attestation.: If time is entered above; I have spent that time in minutes in the direct care of this critically ill patient, excluding procedure time. ED Disposition Clinical Impression: Seizure, Pseudoseizure, Psychiatric disorder Disposition: DC- TO HOME OR SELFCARE Is pt being admited?: No Does the pt Need Aspirin: No Condition: Stable Instructions: Schizophrenia Additional Instructions: You are medically cleared to continue your treatment at [facility]. Referrals: PRIMARY CARE [Primary Care Provider] - 3-5 Days Time of Disposition: 15:38
[2020-08-30 13:24] LABS: Basophils # (Auto) 0.1 K/mm3 (0.0-0.1); Basophils % (Auto) 0.8 % (0.0-1.8); Eosinophils # (Auto) 0.1 K/mm3 (0.0-0.4); Eosinophils % (Auto) 0.8 % (0.0-4.3); Hematocrit 41.3 % (35.5-45.6); Lymphocytes # (Auto) 1.5 K/mm3 (1.2-5.4); Lymphocytes % (Auto) 17.4 % (13.4-35.0); Mean Corpuscular HGB Conc 34 % (32-34); Mean Corpuscular Volume 92 fl (84-94); Monocytes # (Auto) 0.6 K/mm3 (0.0-0.8); Monocytes % (Auto) 6.4 % (0.0-7.3); Platelet Count 325 K/mm3 (140-440); Red Blood Count 4.49 M/mm3 (3.65-5.03); Red Cell Distribution Width 12.3 % (13.2-15.2)
[2020-08-30 13:36] LABS: INR 0.97 (0.87-1.13)
[2020-08-30 13:37] LABS: Partial Thromboplastin Time 26.1 Sec. (24.2-36.6)
[2020-08-30 13:47] LABS: Creatine Kinase MB 1.1 ng/mL (0.0-4.0)
[2020-08-30 13:48] LABS: BUN/Creatinine Ratio 9; Blood Urea Nitrogen 9 mg/dL (9-20); Calcium 9.2 mg/dL (8.4-10.2); Hemolysis Index 11
[2020-08-30 13:51] LABS: Alanine Aminotransferase 46 units/L (7-56); Albumin 4.6 g/dL (3.9-5)
--- NOTE | 2020-08-30 13:51 | Cat Scan Report ---
CT HEAD WITHOUT CONTRAST INDICATION : AMS. TECHNIQUE: Axial, coronal and sagittal CT imaging was performed from the skull apex through the skul l base without contrast. All CT scans at this location are performed using CT dose reduction for ALA RA by means of automated exposure control. COMPARISON: CT head without contrast from 06/17/2017. FINDINGS: PARENCHYMA: No mass, midline shift, hemorrhage, extraaxial collection or acute territorial infarctio n. VENTRICLES: Symmetric and normal in size. SOFT TISSUES: No significant abnormality of the included soft tissues/orbits. BONES: No acute osseous abnormality. SINUSES: No significant abnormality. ADDITIONAL FINDINGS: None. IMPRESSION: 1. No acute intracranial abnormality. Signer Name: Jt Lozoya MD Signed: 08/30/2020 1:47 PM Workstation Name: [id number]
[2020-08-30 14:01] LABS: Bilirubin,Direct < 0.2 mg/dL (0-0.2)
--- NOTE | 2020-08-30 15:54 | XRay Report ---
CHEST 1 VIEW 08/30/2020 2:39 PM INDICATION / CLINICAL INFORMATION: hypertension. COMPARISON: None available. FINDINGS: SUPPORT DEVICES: None. HEART / MEDIASTINUM: No significant abnormality. LUNGS / PLEURA: Clear lungs. No significant pleural effusion. No pneumothorax. ADDITIONAL FINDINGS: No significant additional findings. IMPRESSION: 1. No significant abnormality of the chest. Signer Name: Jt Lozoya MD Signed: 08/30/2020 3:50 PM Workstation Name: [id number]
[2020-08-30 16:45] VITALS: BP 160/94
== END 2020-08-30 16:45 | disposition home or self-care (01) ==
LOC: ED 12:48
DX: G40.909 Epilepsy, unspecified, not intractable, without status epilepticus (principal); F29 Unspecified psychosis not due to a substance or known physiological condition; I10 Essential (primary) hypertension; J45.909 Unspecified asthma, uncomplicated; Z79.899 Other long term (current) drug therapy; Z88.8 Allergy status to other drugs, medicaments and biological substances
CPT/HCPCS: 36415; 70450; 71045; 80048; 80076; 80320; 82140; 82550; 82553; 82962; 83735; 83880; 84484; 85025; 85610; 85730; 93005; G0480

== ENCOUNTER 2021-10-03 09:15 | Emergency (ER) | payer OTHER ==
[2021-10-03] MEDS ORDERED: LORazepam 2 MG/ML VIAL ONE (09:20)
[2021-10-03] MEDS ORDERED: LORazepam 2 MG/ML VIAL IV ONE (09:25)
[2021-10-03] MEDS ORDERED: SODIUM CHLORIDE 0.9% 1000 ML 1,000 ML IV ONE (09:29)
--- NOTE | 2021-10-03 09:33 | Emergency Department Report ---
ED Psych HPI - General Chief Complaint: Psych Stated Complaint: SUICIDE ATTEMPT Time Seen by Provider: 10/03/21 09:25 Source: EMS Mode of arrival: Stretcher - History of Present Illness Initial Comments: Patient is 26 years old male with history of bipolar disorder, pseudoseizure and questionable suicidal attempt before. Patient brought to the emergency room via EMS from home. EMS reported that patient came down to his parents and told him that he took all his medication to kill himself. His medication include Lamictal, lisinopril, trazodone and Ariprozole. EMS reported that patient found sitting on his couch in no acute distress. EMS reported that as soon as they took him to the ambulance he started acting up and pretending like he is having a seizure. Upon arrival to the ER, patient continue to act like he is having a seizure however he will stop when we called his name. Patient is refusing to talk in he will just stare at you. Patient will become agitated. Patient given Ativan 2 mg IV. Poison control consulted. MD Complaint: altered mental status, other -: This morning Associated Psychiatric Symptoms: suicidal ideation - Related Data Home Medications Medication Instructions Recorded Confirmed Last Taken lamoTRIgine [LaMICtal] 100 mg PO QAM 08/15/16 10/03/21 Unknown lamoTRIgine [LaMICtal] 300 mg PO QHS 08/15/16 10/03/21 Unknown Lisinopril [Zestril] 5 mg PO DAILY 05/05/20 10/03/21 Unknown ARIPiprazole [Aripiprazole] 10 mg PO BID 10/03/21 10/03/21 Unknown traZODone [Desyrel] 100 mg PO QHS 10/03/21 10/03/21 Unknown Allergies Allergy/AdvReac Type Severity Reaction Status Date / Time naproxen Allergy Hives Verified 10/03/21 09:25 ED Review of Systems ROS: Stated complaint: SUICIDE ATTEMPT Other details as noted in HPI Comment: Unobtainable due to pts medical conditions ED Past Medical Hx - Past Medical History Hx Hypertension: Yes Hx Seizures: Yes Hx Psychiatric Treatment: Yes (depression panic disorder/ANXIETY/ BIPOLAR) Hx Asthma: Yes Hx HIV: No - Social History Smoking Status: Never Smoker - Medications Home Medications: Home Medications Medication Instructions Recorded Confirmed Last Taken Type lamoTRIgine [LaMICtal] 100 mg PO QAM 08/15/16 10/03/21 Unknown History lamoTRIgine [LaMICtal] 300 mg PO QHS 08/15/16 10/03/21 Unknown History Lisinopril [Zestril] 5 mg PO DAILY 05/05/20 10/03/21 Unknown History ARIPiprazole [Aripiprazole] 10 mg PO BID 10/03/21 10/03/21 Unknown History traZODone [Desyrel] 100 mg PO QHS 10/03/21 10/03/21 Unknown History ED Physical Exam - General Limitations: Altered Mental Status General appearance: alert, in no apparent distress, anxious, other (Agitated.) - Head Head exam: Present: atraumatic, normocephalic, normal inspection - Eye Eye exam: Present: normal appearance - ENT ENT exam: Present: normal exam, normal orophraynx, mucous membranes moist - Neck Neck exam: Present: normal inspection, full ROM. Absent: tenderness, meningismus - Respiratory Respiratory exam: Present: normal lung sounds bilaterally - Cardiovascular Cardiovascular Exam: Present: regular rate, normal rhythm, normal heart sounds - GI/Abdominal GI/Abdominal exam: Present: soft, normal bowel sounds. Absent: distended, tenderness, guarding, rebound, rigid, organomegaly, mass, bruit, pulsatile mass, hernia - Extremities Exam Extremities exam: Present: normal inspection, full ROM, normal capillary refill. Absent: tenderness - Back Exam Back exam: Present: normal inspection, full ROM. Absent: CVA tenderness (R), CVA tenderness (L) - Neurological Exam Neurological exam: Present: alert, CN II-XII intact, reflexes normal. Absent: motor sensory deficit - Psychiatric Psychiatric exam: Present: agitated, anxious, manic, suicidal ideation. Absent: homicidal ideation - Skin Skin exam: Present: warm, intact, normal color ED Course Vital Signs 10/03/21 10/03/21 10/03/21 09:22 09:30 09:46 Temperature Pulse Rate 131 H 119 H 108 H Respiratory 29 H 23 20 Rate Blood Pressure 119/68 93/49 O2 Sat by Pulse 97 94 93 Oximetry 10/03/21 10/03/21 10/03/21 10:00 10:16 10:18 Temperature Pulse Rate 103 H Respiratory 17 12 17 Rate Blood Pressure 69/23 110/61 O2 Sat by Pulse 93 98 99 Oximetry 10/03/21 10:21 Temperature 98.9 F Pulse Rate 83 Respiratory Rate Blood Pressure 110/61 O2 Sat by Pulse Oximetry ED Medical Decision Making - Lab Data Result diagrams: 10/03/21 09:38 10/03/21 09:38 - EKG Data -: EKG Interpreted by Me EKG shows normal: sinus rhythm Rate: tachycardia - EKG Data Interpretation: no acute changes - Medical Decision Making Patient is 26 years old male with history of bipolar disorder, pseudoseizure and questionable suicidal attempt before. Patient brought to the emergency room via EMS from home. EMS reported that patient came down to his parents and told him that he took all his medication to kill himself. His medication include Lamictal, lisinopril, trazodone and Ariprozole. EMS reported that patient found sitting on his couch in no acute distress. EMS reported that as soon as they took him to the ambulance he started acting up and pretending like he is having a seizure. Upon arrival to the ER, patient continue to act like he is having a seizure however he will stop when we called his name. Patient is refusing to talk in he will just stare at you. Patient will become agitated. Patient given Ativan 2 mg IV. Poison control consulted. I was able to talk to patient mother she stated that he lives upstairs and and her father downstairs. She stated that he call them twice but they did not hear the phone ringing however they metal pickling equipment operator the phone on the third time and he told him that he took all his medication. Mother stated that this is happened around 5 AM. She also added that patient has been acting weird recently. She stated that he is hearing voices asking him to kill himself. She stated that he tried to commit suicide 5 times since last year. She stated that he received his monthly antipsychotic shot last week. Patient remained stable in the ER with stable vital sign. Ativan helped a lot. Patient now is relaxed and able to communicate he is asking for food now. He stated that nobody is listening to him. EKG showed sinus tachycardia. Labs reviewed and showed a potassium of 2.8. Patient received potassium 20 mEq IV and also supplemented with 40 mEq K-Dur. Critical care attestation.: If time is entered above; I have spent that time in minutes in the direct care of this critically ill patient, excluding procedure time. ED Disposition Clinical Impression: Drug overdose, intentional, Suicide attempt Is pt being admited?: No Condition: Stable Referrals: PRIMARY CARE,MD [Primary Care Provider] - 3-5 Days
[2021-10-03 10:07] LABS: Basophils % (Auto) 0.2 % (0.0-1.8); Eosinophils # (Auto) 0.1 K/mm3 (0.0-0.4); Eosinophils % (Auto) 1.2 % (0.0-4.3); Hematocrit 41.5 % (35.5-45.6); Hemoglobin 13.4 gm/dl (11.8-15.2); Lymphocytes % (Auto) 14.3 % (13.4-35.0); Mean Corpuscular HGB Conc 32 % (32-34); Mean Corpuscular Volume 88 fl (84-94); Monocytes # (Auto) 0.5 K/mm3 (0.0-0.8); Monocytes % (Auto) 7.3 % (0.0-7.3); Platelet Count 319 K/mm3 (140-440); Red Blood Count 4.72 M/mm3 (3.65-5.03); Red Cell Distribution Width 13.4 % (13.2-15.2)
[2021-10-03 10:19] LABS: BUN/Creatinine Ratio 7; Blood Urea Nitrogen 8 mg/dL (9-20); Hemolysis Index 4
[2021-10-03 10:23] LABS: Alanine Aminotransferase 55 units/L (7-56); Albumin 4.3 g/dL (3.9-5); Bilirubin,Direct < 0.2 mg/dL (0-0.2)
[2021-10-03] MEDS ORDERED: POTASSIUM CHLORIDE ER 20 MEQ TAB PO ONE (10:30)
[2021-10-03] MEDS: POTASSIUM CHLORIDE 10 MEQ 10 MEQ/100 ML BAG IV SCH ×2 (11:44→16:07)
--- NOTE | 2021-10-03 15:14 | Event Note ---
I have reviewed labs obtained. Patient's repeat lactic acid within normal limits at 1.3 patient repeat potassium within normal limits at 3.6. Patient is medically clear. I have asked charge nurse to relocate patient to the psychiatric unit.
[2021-10-03 19:25] LABS: Bacteria,Urine 1+ /HPF (Negative); Bilirubin,Urine NEG (Negative); Blood,Urine SM (Negative); Color,Urine Yellow (Yellow); Granular Casts,Urine 3 /LPF; Hyaline Casts,Urine 5 /LPF; Mucus,Urine 3+ /HPF; Urobilinogen,Urine < 2.0 mg/dL (<2.0)
[2021-10-03 19:32] LABS: Amphetamine Screen,Urine PRESUMPTIVE NEGATIVE; Benzodiazepines Screen,Urine PRESUMPTIVE NEGATIVE; Cannabinoid Screen,Urine PRESUMPTIVE POSITIVE; Cocaine Screen,Urine PRESUMPTIVE NEGATIVE; Methadone Screen,Urine PRESUMPTIVE NEGATIVE; Opiate Screen,Urine PRESUMPTIVE NEGATIVE
[2021-10-03] MEDS ORDERED: traZODone 100 MG TAB PO SCH (22:00)
[2021-10-03] MEDS ORDERED: lamoTRIgine 100 MG TAB PO SCH (22:00)
[2021-10-03] MEDS ORDERED: LORazepam 2 MG/ML VIAL IM STA (23:00)
[2021-10-03] MEDS ORDERED: ARIPiprazole 10 MG TAB PO SCH (23:45)
[2021-10-04 09:12] VITALS: BP 126/78
--- NOTE | 2021-10-04 09:12 | Electrocardiograph Report ---
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
--- NOTE | 2021-10-04 09:25 | Consultation ---
History of Present Illness - Reason for Consult Consult date: 10/04/21 Reason for consult: OD - History of Present Psychiatric Illness ED Note: Patient is 26 years old male with history of bipolar disorder, pseudoseizure and questionable suicidal attempt before. Patient brought to the emergency room via EMS from home. EMS reported that patient came down to his parents and told him that he took all his medication to kill himself. His medication include Lamictal, lisinopril, trazodone and Ariprozole. EMS reported that patient found sitting on his couch in no acute distress. EMS reported that as soon as they took him to the ambulance he started acting up and pretending like he is having a seizure. Upon arrival to the ER, patient continue to act like he is having a seizure however he will stop when we called his name. Patient is refusing to talk in he will just stare at you. Patient will become agitated. Patient given Ativan 2 mg IV. Poison control consulted. The patient was seen this morning. The patient is shivering and staring into space. He reports having suicidal ideation without a plan. The patient is unable to state recent stressor. He denies any current auditory/visual hallucinations. Diagnoses: Bipolar Suicide attempts or Self-harm behavior: Yes Prior psychiatric hospitalizations: Yes Substance Abuse history: Denies Previous psychiatric medications tried:Unable to recall Outpatient treatment: Unknown PAST MEDICAL HISTORY: unknown Family Psychiatric History: None reported or documented SOCIAL HISTORY Marital Status: Single Living Arrangements: lives with family Employment Status: unemployed Access to guns/weapons: Denies Education: Some college History of Abuse: none reported Legal History: none reported REVIEW OF SYSTEMS Constitutional: Negative for weight loss ENT: Negative for stridor Respiratory: Negative for cough or hemoptysis All other systems reviewed and are negative MENTAL STATUS EXAMINATION General Appearance and Behavior: Age appropriate, good hygiene, wearing appropriate clothes, calm, cooperative Cooperation: Participating/engaged Psychomotor Behavior: Normal Mood: Depressed Affect and affective range: congruent with mood Thought Process: circumstantial Thought Content: Suicidal Speech: Low volume Suicidal Ideation: Yes Homicidal Ideation: Denies Hallucinations: Denies Delusions: None elicited Impulse Control: Normal Insight and Judgment: Limited insight and judgment, Memory: Normal Attention: Divided Orientation: Alert, oriented Assessment and Plan (1)Bipolar Current Visit: Yes Status: Acute 1013 Treatment Plan Start Seroquel 25mg po BID Start Seroquel 50mg po QHS The patient needs to follow up with his outpatient psychiatrist and therapist. Continue home meds Disposition: Recommend psychiatric inpatient admission at this time. Will follow. Thanks Case staffed with Dr. Guardado Medications and Allergies Allergies Allergy/AdvReac Type Severity Reaction Status Date / Time naproxen Allergy Hives Verified 10/03/21 09:25 Home Medications Medication Instructions Recorded Confirmed Last Taken Type lamoTRIgine [LaMICtal] 100 mg PO QAM 08/15/16 10/03/21 Unknown History lamoTRIgine [LaMICtal] 300 mg PO QHS 08/15/16 10/03/21 Unknown History Lisinopril [Zestril] 5 mg PO DAILY 05/05/20 10/03/21 Unknown History ARIPiprazole [Aripiprazole] 10 mg PO BID 10/03/21 10/03/21 Unknown History traZODone [Desyrel] 100 mg PO QHS 10/03/21 10/03/21 Unknown History Active Meds: Active Medications Aripiprazole (Aripiprazole 10 Mg Tab) 10 mg PO BID [facility] Last Admin: 10/03/21 23:45 Dose: 10 mg Lamotrigine (Lamotrigine 100 Mg Tab) 300 mg PO QHS [facility] Last Admin: 10/03/21 22:00 Dose: 300 mg Lamotrigine (Lamotrigine 100 Mg Tab) 100 mg PO DAILY [facility] Lisinopril (Lisinopril 10 Mg Tab) 10 mg PO DAILY [facility] Trazodone HCl (Trazodone 100 Mg Tab) 100 mg PO QHS [facility] Last Admin: 10/03/21 22:00 Dose: 100 mg Mental Status Exam - Vital signs Last Vital Signs Temp 98 F 10/04/21 02:30 Pulse 82 10/04/21 02:30 Resp 18 10/04/21 02:30 BP 126/78 10/04/21 02:30 Pulse Ox 100 10/04/21 02:30 Results Result Diagrams: 10/03/21 09:38 10/03/21 14:13 Abnormal lab results 10/03/21 10/03/21 10/03/21 Range/Units 09:38 09:38 09:38 Lymph # (Auto) 1.0 L (1.2-5.4) K/mm3 Seg Neutrophils % 77.0 H (40.0-70.0) % Potassium 2.8 L* (3.6-5.0) mmol/L Carbon Dioxide 20 L (22-30) mmol/L BUN 8 L (9-20) mg/dL Glucose 172 H (75-100) mg/dL Lactic Acid (0.7-2.0) mmol/L Urine WBC (Auto) (0.0-6.0) /HPF Salicylates < 0.3 L (2.8-20.0) mg/dL Acetaminophen (10.0-30.0) ug/mL 10/03/21 10/03/21 10/03/21 Range/Units 09:38 09:38 11:45 Lymph # (Auto) (1.2-5.4) K/mm3 Seg Neutrophils % (40.0-70.0) % Potassium (3.6-5.0) mmol/L Carbon Dioxide (22-30) mmol/L BUN (9-20) mg/dL Glucose (75-100) mg/dL Lactic Acid 4.20 H* (0.7-2.0) mmol/L Urine WBC (Auto) (0.0-6.0) /HPF Salicylates (2.8-20.0) mg/dL Acetaminophen 5.0 L 5.0 L (10.0-30.0) ug/mL 10/03/21 Range/Units 18:40 Lymph # (Auto) (1.2-5.4) K/mm3 Seg Neutrophils % (40.0-70.0) % Potassium (3.6-5.0) mmol/L Carbon Dioxide (22-30) mmol/L BUN (9-20) mg/dL Glucose (75-100) mg/dL Lactic Acid (0.7-2.0) mmol/L Urine WBC (Auto) 36.0 H (0.0-6.0) /HPF Salicylates (2.8-20.0) mg/dL Acetaminophen (10.0-30.0) ug/mL All other labs normal.
[2021-10-04] MEDS ORDERED: lamoTRIgine 100 MG TAB PO SCH (10:00)
[2021-10-04] MEDS ORDERED: LISINOPRIL 10 MG TAB PO SCH (10:00)
--- NOTE | 2021-10-04 11:24 | Event Note ---
Date: 10/04/21 vss , no distress no events overnight medically cleared hypokalemia corrected psych assessed recommends inpatient awaiting transfer
[2021-10-04] MEDS ORDERED: QUEtiapine 25 MG TAB PO SCH ×2 (12:00→22:00)
== END 2021-10-04 16:13 ==
LOC: ED 09:15
DX: T65.92XA Toxic effect of unspecified substance, intentional self-harm, initial encounter (principal); Y92.89 Other specified places as the place of occurrence of the external cause; R45.851 Suicidal ideations; Z20.822 Contact with and (suspected) exposure to COVID-19
CPT/HCPCS: 36415; 80048; 80076; 80307; 81001; 82140; 82550; 84132; 85025; 87086; 93005; 96361; 96372; 96374; 99285; J2060; J3480; J7030; U0003; 80320; Q0162; G0480